=== PATIENT | male | born 1995 | race Caucasian/White ===

== ENCOUNTER 2017-05-06 22:41 | Emergency (ER) | payer OTHER ==
[~2017-05-06] VITALS: Ht 188 cm; Wt 70.5 kg
[~2017-05-06 22:41] MED LIST: IBUP-1827 PO; METH-313 PO
[2017-05-06 22:48] VITALS: BP 127/81; PULSE 88; RESP 16; O2SAT 100
--- NOTE | 2017-05-06 23:24 | ED.REPORT ---
HPI-Extremity Problem Lower Date of Service May 06, 2017 ED Provider: Lenin Severino DO Patient is an otherwise healthy 21 year old male who presents to the ED complaining of left foot pain onset today. Associated symptoms include trouble walking due to pain, swelling and ecchymosis to the dorsum of the left foot. He denies radiating pain up his leg. The patient reports that he dropped a tool box that was at least 100lbs on it while at home. Nursing Notes Stated Complaint: LEFT FOOT PAIN Chief Complaint: Extremity Trauma Nursing Notes Reviewed: Yes Allergies: Coded Allergies: No Known Allergies (Verified Allergy, Unknown, 03/04/16) Scheduled Methocarbamol (Robaxin-750) 750 Mg Tablet 1,500 MG PO QID Scheduled PRN Ibuprofen (Ibuprofen) 600 Mg Tablet 600 MG PO QID PRN PRN For Pain General Time Seen by MD: 23:24 Chief Complaint Foot injury left Hx Obtained From: Patient Arrived By: Walk-in Onset Occurred: 1 - 4 hours ago Symptom Duration: Since onset Caused by: Accidental, Crushing injury Context: Occurred at: Home injury Location: : Foot left Quality: Painful Severity: Current: Severe Exacerbated by: Movement Recent Healthcare: No recent doctor visit, No recent hospitalization Similar Sx Previous: No Past Medical History Past Medical History Denies Past Surgical History Denies Smoking History Current Every Day Smoker Social History Alcohol Use: "Social" Drug Use: Denies drug use Other Social History: Good social support, Local resident Ambulatory Status Independent Review of Systems Constitutional: Denies: Chills, Fever Musculoskeletal: Reports: Extremity pain, Extremity swelling (left foot) Skin: Reports Bruising, Denies Itching, Denies Rash Neurologic: Reports: Problem walking, Denies: Numbness, Weakness Complete sys rev & neg: except as marked. Respiratory: Denies: Non-productive cough, Shortness of breath Physical Exam Initial Vital Signs Vital Signs (First) Date Time Temp Pulse Resp B/P Pulse Ox O2 Delivery O2 Flow Rate FiO2 05/06/17 22:48 37.0 88 16 127/81 100 Room Air Initial VS: Reviewed Lower Extremity / Pelvis / MS: Inspection NL, Neurologic intact, Vascular intact Ankle / Foot: Neurologic intact, Vascular intact good dp pulses ecchymosis and swelling of the left dorsum General/Constitutional: Awake, Alert Respiratory / Chest: Atraumatic, Breath sounds NL, Breath sounds = bilat, No respiratory distress Cardiovascular: Heart rate NL, Regular rhythm, Heart sounds NL Skin: Atraumatic, Color NL, No rash, Warm, Dry Neurologic: Oriented X3, Speech NL, No motor deficits, No sensory deficits Head / Eyes: Atraumatic, Normocephalic, PERRL, EOMI Psychiatric: Affect NL, Mood NL Interpretation & Diagnostics X-Ray Interpretation Xray Interpretation: No evidence of fracture X-Ray Ordered: Foot left Interpretation / Wet Read by: Wet read ED physician Re-Eval/Medical Decision Re-Evaluation/Progress : Time of Eval: 00:10 Re-Evaluation/Progress Note: Discussed X-ray results and plan for discharge. Patient understands and agrees to plan. All questions were addressed. Counseled Regarding: Diagnosis, Lab results, Need for follow-up, When/why to return to ED Discharge & Departure Impression: Primary Impression: Injury of left foot Encounter type: initial encounter Qualified Code: S99.922A - Unspecified injury of left foot, initial encounter Disposition: Home Discharge Condition All VS Reviewed: Yes Condition: Stable Patient Instructions: Splint Care (ED) Additional Instructions: Your X-ray showed no evidence of a fracture. Wear the boot until cleared by ortho. You can take 1-2 [place] every 6 hours as needed for pain. Do not drink alcohol or drive while taking the pain medication. Do not combine with Acetaminophen. Call Tuesday to schedule a follow up appointment with the referred ortho. Return to the emergency department if you develop any new or concerning symptoms. Referrals: Gray Kong MD Attestation Portions of this note were transcribed by Mari Ignacio. I, Dr. Severino personally performed the history, physical exam and medical decision-making; I reviewed and confirmed the accuracy of the information in the transcribed note. Signed by: Mirza Juarez, 05/06/17 and 2330 copies to: Gray Kong MD, Todd P DO May 06, 2017 23:24 Belen Ignacio May 06, 2017 23:35
[2017-05-07 00:20] VITALS: BP 127/81; PULSE 88; RESP 16; O2SAT 100
--- NOTE | 2017-05-07 08:08 | DRSVH ---
PROCEDURE: X-RAY LEFT FOOT COMPLETE, MINIMUM THREE VIEWS ([id number]) INDICATIONS: crush injury midfoot TECHNIQUE: 3 views of the foot were acquired. COMPARISON: None. FINDINGS: Bones: No fractures or dislocations. No suspicious bony lesions. Soft tissues: No tibiotalar joint effusion. Achilles tendon appears normal. There is mild dorsal s oft tissue swelling. IMPRESSION: No acute radiographic findings. If pain persists, repeat study in 5-7 days is recommende d to exclude occult fracture. Dictated by: Melody Gutierrez M.D. on 05/07/2017 at 8:06 Approved by: Melody Gutierrez M.D. on 05/07/2017 at 8:06
== END 2017-05-07 00:20 | disposition home or self-care (01) ==
LOC: SED 22:41
DX: S99.922A Unspecified injury of left foot, initial encounter (principal); W20.8XXA Other cause of strike by thrown, projected or falling object, initial encounter; Y93.9 Activity, unspecified; Y92.009 Unspecified place in unspecified non-institutional (private) residence as the place of occurrence of the external cause; Y99.9 Unspecified external cause status; F17.200 Nicotine dependence, unspecified, uncomplicated